=== PATIENT | female | born 1980 | race American Indian/Alaskan Native ===

== ENCOUNTER 2017-06-25 02:00 | Emergency (ER) | payer SELFPAY ==
[2017-06-25 02:23] VITALS: BP 108/71
[2017-06-25 03:10] LABS: Basophils % (Auto) 0.8 % (0.0-1.8); Eosinophils % (Auto) 2.4 % (0.0-4.3); Hematocrit 28.6 % (30.3-42.9); Mean Corpuscular HGB Conc 32 % (30-34); Mean Corpuscular Volume 73 fl (79-97); Platelet Count 473 K/mm3 (140-440); Red Blood Count 3.92 M/mm3 (3.65-5.03); Red Cell Distribution Width 18.1 % (13.2-15.2); White Blood Count 9.9 K/mm3 (4.5-11.0)
[2017-06-25 03:13] LABS: Mean Corpuscular Hemoglobin 23 pg (28-32)
[2017-06-25 03:28] LABS: Anion Gap 20 mmol/L; BUN/Creatinine Ratio 12; Blood Urea Nitrogen 6 mg/dL (7-17); Calcium 8.8 mg/dL (8.4-10.2); Carbon Dioxide 21 mmol/L (22-30); Chloride 105.4 mmol/L (98-107); Glucose 107 mg/dL (65-100); Potassium 4.5 mmol/L (3.6-5.0); Sodium 142 mmol/L (137-145)
== END 2017-06-25 03:00 | disposition left against medical advice (07) ==
LOC: ED 02:00
DX: R07.89 Other chest pain (principal); R05 Cough; Z53.21 Procedure and treatment not carried out due to patient leaving prior to being seen by health care provider
CPT/HCPCS: 36415; 80048; 84484; 85025; 93005; 93010

== ENCOUNTER 2020-11-13 20:01 | Emergency (ER) | payer SELFPAY ==
--- NOTE | 2020-11-13 22:41 | Emergency Department Report ---
- General Chief Complaint: Wound/Laceration Stated Complaint: HYDROADENITIS SUUERTIVA Time Seen by Provider: 11/13/20 22:15 Source: patient Mode of arrival: Ambulatory Limitations: No Limitations - History of Present Illness Initial Comments: 40-year-old female, history of hidradenitis suppurativa, presents to ED with leg wounds x1 month. Patient states she recently changed insurances and is no longer taking Humira. Since being off, patient states she has been having worsening lesions on her legs. Patient states the current ulcerations have been present x1 month. Patient states she saw a new PCP who prescribed clindamycin and Keflex approximately 3 weeks ago. Patient states she was then given a prescription for prednisone 10/28. Patient sees no improvement and reports worsening pain secondary to the ulcerations. Patient states she has been taking ibuprofen for pain control. Patient has an appointment with a new ostrich farmer in 6 days, on 11/19/2020. Patient denies fever. -: month(s) (1) Extremity Location: Left: Lower Leg, Right: Lower Leg Associated Symptoms: pain. denies: fever Treatments Prior to Arrival: other (Clindamycin, Keflex, prednisone) - Related Data Previous Rx's Medication Instructions Recorded Last Taken Type Acetaminophen/Codeine 1 tab PO Q6H PRN #15 tab 07/04/14 Unknown Rx [Acetaminophen-Codeine #3 TAB] Ibuprofen [Motrin 800 MG tab] 800 mg PO Q8H PRN #21 tablet 07/04/14 Unknown Rx Acetaminophen/Codeine [Tylenol #3] 1 tab PO Q6H PRN #21 tab 08/16/15 Unknown Rx Clindamycin [Clindamycin CAP] 600 mg PO BID #28 capsule 08/16/15 08/21/15 Rx Clindamycin [Clindamycin CAP] 300 mg PO Q8H #21 cap 08/23/15 Unknown Rx Ibuprofen [Motrin 800 MG tab] 800 mg PO Q8HR PRN #30 tablet 11/13/20 Unknown Rx traMADoL [Ultram] 50 mg PO Q6HR PRN #10 tablet 11/13/20 Unknown Rx Allergies Allergy/AdvReac Type Severity Reaction Status Date / Time Sulfa (Sulfonamide Allergy Swelling Verified 08/22/15 09:31 Antibiotics) Penicillins AdvReac Hives Verified 08/22/15 09:31 ED Review of Systems ROS: Stated complaint: HYDROADENITIS SUUERTIVA Other details as noted in HPI Comment: All other systems reviewed and negative Constitutional: denies: fever Skin: as per HPI ED Past Medical Hx - Past Medical History Previous Medical History?: Yes Hx Diabetes: No Additional medical history: Crohn's Disease. Hydrodenitis - Surgical History Past Surgical History?: Yes Additional Surgical History: - Social History Smoking Status: Current Every Day Smoker Substance Use Type: None - Medications Home Medications: Home Medications Medication Instructions Recorded Confirmed Last Taken Type Acetaminophen/Codeine 1 tab PO Q6H PRN #15 tab 07/04/14 Unknown Rx [Acetaminophen-Codeine #3 TAB] Ibuprofen [Motrin 800 MG tab] 800 mg PO Q8H PRN #21 tablet 07/04/14 Unknown Rx Acetaminophen/Codeine [Tylenol #3] 1 tab PO Q6H PRN #21 tab 08/16/15 Unknown Rx Clindamycin [Clindamycin CAP] 600 mg PO BID #28 capsule 08/16/15 08/21/15 Rx Clindamycin [Clindamycin CAP] 300 mg PO Q8H #21 cap 08/23/15 Unknown Rx Ibuprofen [Motrin 800 MG tab] 800 mg PO Q8HR PRN #30 tablet 11/13/20 Unknown Rx traMADoL [Ultram] 50 mg PO Q6HR PRN #10 tablet 11/13/20 Unknown Rx ED Physical Exam - General Limitations: No Limitations General appearance: alert, in no apparent distress - Head Head exam: Present: atraumatic, normocephalic - Eye Eye exam: Present: normal appearance, EOMI - ENT ENT exam: Present: mucous membranes moist - Neck Neck exam: Present: normal inspection - Respiratory Respiratory exam: Present: normal lung sounds bilaterally. Absent: respiratory distress - Cardiovascular Cardiovascular Exam: Present: regular rate, normal rhythm - GI/Abdominal GI/Abdominal exam: Absent: distended - Extremities Exam Extremities exam: Present: other (Multiple superficial ulcerations to bilateral lower legs, some with somewhat purulent discharge present, nonerythematous; no obvious abscesses present; dark discoloration present from previous scarring; bilateral lower legs tender to palpation) - Neurological Exam Neurological exam: Present: alert, oriented X3 - Psychiatric Psychiatric exam: Present: normal affect, normal mood - Skin Skin exam: Present: other (See extremity exam) ED Course Vital Signs 11/13/20 11/13/20 22:00 23:06 Temperature 99.3 F 98.9 F Pulse Rate 90 88 Respiratory 18 18 Rate Blood Pressure 120/93 Blood Pressure 118/96 [Left] O2 Sat by Pulse 99 99 Oximetry ED Medical Decision Making - Medical Decision Making 40-year-old female, history of hidradenitis suppurativa, presents to ED with leg wounds x1 month. Patient states she recently changed insurances and is no longer taking Humira. Since being off, patient states she has been having worsening lesions on her legs. Patient has been prescribed multiple antibiotics and also prednisone all within the last 3 weeks. Patient reports she has an appointment with a ostrich farmer on 11/19/2020. Vital signs are stable, patient is afebrile. No evidence of abscesses on exam. Will provide prescriptions for pain control. Urged patient to keep her appointment with her ostrich farmer on the . Will discharge at this time. Return precautions given. - Differential Diagnosis Hidradenitis suppurativa Critical care attestation.: If time is entered above; I have spent that time in minutes in the direct care of this critically ill patient, excluding procedure time. ED Disposition Clinical Impression: Skin ulcer of multiple sites of left lower extremity, Skin ulcer of multiple sites of right lower extremity Disposition: - TO HOME OR SELFCARE Is pt being admited?: No Condition: Stable Instructions: Hidradenitis Suppurativa Prescriptions: Ibuprofen [Motrin 800 MG tab] 800 mg PO Q8HR PRN #30 tablet PRN Reason: Pain, Moderate (4-6) traMADoL [Ultram] 50 mg PO Q6HR PRN #10 tablet PRN Reason: Pain Referrals: PRIMARY CARE,MD [Primary Care Provider] - 3-5 Days Time of Disposition: 22:46
[2020-11-13 23:29] VITALS: BP 118/96
== END 2020-11-13 23:06 | disposition home or self-care (01) ==
LOC: ED 20:01
DX: L97.929 Non-pressure chronic ulcer of unspecified part of left lower leg with unspecified severity (principal); L97.919 Non-pressure chronic ulcer of unspecified part of right lower leg with unspecified severity; F17.200 Nicotine dependence, unspecified, uncomplicated; Z79.899 Other long term (current) drug therapy
CPT/HCPCS: 99282